=== PATIENT | female | born 1955 | race Caucasian/White ===

== ENCOUNTER 2024-04-21 08:42 | Day surgery (SDC) | payer MEDICARE, BC ==
[2024-04-21] MEDS: Lactated Ringers 1,000 ML IV SCH (09:01)
[2024-04-21] MEDS ORDERED: Propofol 200 MG/20 ML SDV ONE ×2 (09:18)
[2024-04-21] MEDS ORDERED: fentaNYL 50 MCG/ML SDV ONE (09:18)
[2024-04-21] MEDS ORDERED: Ketamine 200 MG/20 ML MDV ONE (09:18)
== END 2024-04-21 10:40 | disposition home or self-care (01) ==
LOC: CC.SDS 08:42
PROVIDERS: ATTEND Family Medicine
DX: Z12.11 Encounter for screening for malignant neoplasm of colon (principal); K57.30 Diverticulosis of large intestine without perforation or abscess without bleeding; I10 Essential (primary) hypertension; E03.9 Hypothyroidism, unspecified; E78.5 Hyperlipidemia, unspecified; L84 Corns and callosities; F41.8 Other specified anxiety disorders; M21.619 Bunion of unspecified foot; M81.0 Age-related osteoporosis without current pathological fracture; Z79.82 Long term (current) use of aspirin; Z79.890 Hormone replacement therapy; Z79.899 Other long term (current) drug therapy
CPT/HCPCS: J2704; J3010; J3490; J7120